=== PATIENT | female | born 1955 | race African-American/Black ===

== ENCOUNTER 2017-10-16 21:35 | Emergency (ER) | payer OTHER ==
[~2017-10-16] VITALS: Ht 170.2 cm; Wt 79.5 kg
[2017-10-16 21:39] VITALS: Ht 170.2 cm; Wt 79.5 kg
[2017-10-16] MEDS ORDERED: MULTIPLE VITAMI1 TA1 PO (21:40)
[2017-10-16] MEDS ORDERED: ATIVAN1 MG PO (23:01)
[2017-10-16 23:08] VITALS: BP 130/55
== END 2017-10-16 23:08 | disposition home or self-care (01) ==
LOC: D.ER 21:35
DX: F41.9 Anxiety disorder, unspecified (principal)

== ENCOUNTER 2018-03-01 00:35 | Emergency (ER) | payer OTHER ==
[~2018-03-01] VITALS: Ht 170.2 cm; Wt 79.8 kg
[~2018-03-01 00:35] MED LIST: ATIVAN1 MG PO; MULTIPLE VITAMI1 TA1 PO
[2018-03-01 00:56] VITALS: Ht 170.2 cm; Wt 79.8 kg
[2018-03-01] MEDS ORDERED: OXYCODONE-APAP1 TAB PO (03:19)
[2018-03-01 03:45] VITALS: BP 140/81
== END 2018-03-01 03:45 | disposition home or self-care (01) ==
LOC: D.ER 00:35
DX: S52.592A Other fractures of lower end of left radius, initial encounter for closed fracture (principal); S52.612A Displaced fracture of left ulna styloid process, initial encounter for closed fracture; W18.30XA Fall on same level, unspecified, initial encounter; Y93.89 Activity, other specified; Y92.019 Unspecified place in single-family (private) house as the place of occurrence of the external cause; M79.671 Pain in right foot; M25.561 Pain in right knee

== ENCOUNTER 2018-07-09 23:38 | Emergency (ER) | payer OTHER ==
[~2018-07-09] VITALS: Ht 170.2 cm; Wt 75.2 kg
[~2018-07-09 23:38] MED LIST changes: +OXYCODONE-APAP1 TAB PO
[2018-07-09 23:49] VITALS: Ht 170.2 cm; Wt 75.2 kg
[2018-07-10] MEDS ORDERED: HYDROCODON-ACE1 EAC7 PO (02:08)
[2018-07-10 02:45] VITALS: BP 105/65
== END 2018-07-10 02:45 | disposition home or self-care (01) ==
LOC: D.ER 23:38
DX: S52.501A Unspecified fracture of the lower end of right radius, initial encounter for closed fracture (principal); W18.2XXA Fall in (into) shower or empty bathtub, initial encounter; Y93.E1 Activity, personal bathing and showering; Y92.012 Bathroom of single-family (private) house as the place of occurrence of the external cause

== ENCOUNTER 2020-06-14 16:09 | Emergency (ER) | payer OTHER ==
[~2020-06-14] VITALS: Ht 170.2 cm; Wt 65.0 kg
[~2020-06-14 16:09] MED LIST changes: +HYDROCODON-ACE1 EAC7 PO
[2020-06-14 16:14] VITALS: Ht 170.2 cm; Wt 65.0 kg
[2020-06-14 16:34] LABS: BASOPHILS 0.7 % (0-2); EOSINOPHILS 2.1 % (0-7); HEMATOCRIT 35.9 % (36.0-48.0); HEMOGLOBIN 11.5 g/dL (12-16); IMMATURE GRANULOCYTES 0.2 % (0-5); LYMPHOCYTES 46.7 % (15-50); MCH 28.5 pg (26.0-34.0); MCV 88.9 fL (80.0-100.0); MEAN PLATELET VOLUME 11.3 fL (7.4-10.4); MONOCYTES 8.4 % (2-11); NEUTROPHIL ABS# 1.79 10x3/uL (1.56-6.13); NEUTROPHILS 41.9 % (40-80); PLATELET COUNT 222 10x3/uL (130-400); RBC 4.04 10x6/uL (4.00-5.40); RDW 14.7 % (11.5-14.5); WBC 4.3 10x3/uL (4.8-10.8)
[2020-06-14 16:49] LABS: CALC OSMOLALITY 280 mosm/kg (275-300); CALCIUM 9.4 mg/dL (8.5-10.1); CARBON DIOXIDE 28.2 mmol/L (21.0-32.0); CHLORIDE - SERUM 104 mmol/L (98-107); GLUCOSE 103 mg/dL (74-106); POTASSIUM - SERUM 3.8 mmol/L (3.5-5.1); SODIUM 140 mmol/L (136-145); UREA NITROGEN 19 mg/dL (7-18); eGFR NON AFRICAN AMERICAN 59 mL/min (90-120)
[2020-06-14 17:22] LABS: ALBUMIN 3.7 g/dL (3.4-5.0); ALKALINE PHOSPHATASE 64 U/L (30-120); ALT (SGPT) 27 U/L (10-68); BILIRUBIN - TOTAL 0.33 mg/dL (0.2-1.3); CKMB 1.4 U/L (0.0-3.6); CREATINE KINASE 210 UL (21-215); PROTEIN - SERUM 7.3 g/dL (6.4-8.2); TROPONIN-I < 0.017 ng/mL (0.000-0.060)
[2020-06-14 23:48] LABS: CREATINE KINASE 159 UL (21-215); TROPONIN-I < 0.017 ng/mL (0.000-0.060)
[2020-06-15 00:17] VITALS: BP 113/69
== END 2020-06-15 00:21 | disposition other institution (70) ==
LOC: D.ER 16:09
PROVIDERS: Family Medicine
DX: I20.9 Angina pectoris, unspecified (principal); R07.9 Chest pain, unspecified